=== PATIENT | female | born 2000 | race Caucasian/White ===

== ENCOUNTER → 2023-06-12 11:46 | Outpatient (CLI) | payer OTHER, MEDICAID, SELFPAY ==
[2023-06-12 12:55] LABS: TSH w/ Reflex to FT4 2.03 uIU/mL (0.47-4.68)
== END ==
PROVIDERS: PCP Physician Assistant; Referring Provider Obstetrics & Gynecology; Visit Provider Obstetrics & Gynecology
DX: N93.9 Abnormal uterine and vaginal bleeding, unspecified (principal)
CPT/HCPCS: 36415; 83498; 84270; 84403; 84443